=== PATIENT | male | born 1975 | race Caucasian/White ===

== ENCOUNTER 2019-05-06 18:31 | Emergency (ER) | payer OTHER, SELFPAY ==
[2019-05-06] MEDS ORDERED: predniSONE 20 MG TAB ONE (19:06)
[2019-05-06] MEDS ORDERED: VALACYCLOVIR 500 MG TAB ONE (19:06)
--- NOTE | 2019-05-07 00:12 | EDPHYS ---
Physician Documentation [facility] Name: Donte Esquivel Age: 43 yrs Sex: Male : 1975 Arrival Date: 05/06/2019 Time: 18:37 Bed 2 Private MD: ED Physician Cassius Duron HPI: 05/06 21:16 This 43 yrs old presents to ER via EMS with complaints of Numbness Of Face. tw4 21:16 The patient's problem is reported as paresthesias, in left side of face, weakness, in tw4 the left side of face. Onset: The symptoms/episode began/occurred this morning, today. Duration: The episode is continuous. Context: the episode(s) was witnessed, by no one. The symptoms are alleviated by nothing. The symptoms are aggravated by nothing. Associated signs and symptoms: The patient has no apparent associated signs or symptoms. The patient has not experienced similar symptoms in the past. Historical: - Allergies: 18:43 No Known Allergies; jl7 - Home Meds: 18:43 metoprolol tartrate Oral [Active]; losartan oral oral [Active]; jl7 - PMHx: 18:43 Hypertension; jl7 - PSHx: 18:43 Appendectomy; Right hand; Left Ankle; jl7 - Immunization history:: Adult Immunizations unknown. - Coronavirus screen:: The patient has NOT traveled to [place] in the past 14 days. Proceed with normal triage process as indicated. - Social history:: Smoking status: Patient reports the use of cigarette tobacco products, smokes 1.5 packs per day. - Ebola Screening: : No symptoms or risks identified at this time. ROS: 21:16 Constitutional: Negative for fever, chills, and weight loss, Eyes: Negative for injury, tw4 pain, redness, and discharge, Cardiovascular: Negative for chest pain, palpitations, and edema, Respiratory: Negative for shortness of breath, cough, wheezing, and pleuritic chest pain, Abdomen/GI: Negative for abdominal pain, nausea, vomiting, diarrhea, and constipation, Back: Negative for injury and pain, MS/Extremity: Negative for injury and deformity, Skin: Negative for injury, rash, and discoloration. 21:16 Neuro: Positive for numbness, weakness, Negative for altered mental status, dizziness, gait disturbance, headache, hearing loss, loss of consciousness, seizure activity, speech changes, syncope, near syncope. Exam: 21:16 Constitutional: This is a well developed, well nourished patient who is awake, alert, tw4 and in no acute distress. Head/Face: Normocephalic, atraumatic. Chest/axilla: Normal chest wall appearance and motion. Nontender with no deformity. No lesions are appreciated. Cardiovascular: Regular rate and rhythm with a normal S1 and S2. No gallops, murmurs, or rubs. Normal PMI, no JVD. No pulse deficits. Respiratory: Lungs have equal breath sounds bilaterally, clear to auscultation and percussion. No rales, rhonchi or wheezes noted. No increased work of breathing, no retractions or nasal flaring. Abdomen/GI: Soft, non-tender, with normal bowel sounds. No distension or tympany. No guarding or rebound. No evidence of tenderness throughout. Skin: Warm, dry with normal turgor. Normal color with no rashes, no lesions, and no evidence of cellulitis. MS/ Extremity: Pulses equal, no cyanosis. Neurovascular intact. Full, normal range of motion. 21:16 Neuro: Orientation: is normal, to person, place \T\ time. Mentation: is normal, Memory: is normal, Cranial nerves: facial droop noted on left, with forehead spared. Ptosis of left upper eyelid. Vital Signs: 18:43 BP 174 / 112; Pulse 65; Resp 16 S; Temp 98.8(O); Pulse Ox 99% on R/A; Weight 95.25 kg jl7 (R); Height 5 ft. 11 in. (180.34 cm) (R); Pain 0/10; 18:43 Body Mass Index 29.29 (95.25 kg, 180.34 cm) jl7 NIH Stroke Scale Scores: 18:49 NIHSS Score: 2 jl7 MDM: 18:43 Patient medically screened. tw4 21:16 Differential diagnosis: CVA, TIA, paralysis. Data reviewed: vital signs, nurses notes, tw4 EMS record. Data interpreted: Pulse oximetry: Interpretation: normal. Counseling: I had a detailed discussion with the patient and/or guardian regarding: the historical points, exam findings, and any diagnostic results supporting the discharge/admit diagnosis. Special discussion: I discussed with the patient/guardian in detail that at this point there is no indication for admission to the hospital. It is understood, however, that if the symptoms persist or worsen the patient needs to return immediately for re-evaluation. Administered Medications: No medications were administered Disposition: 21:19 Chart complete. tw4 Disposition: 05/06/19 18:55 Discharged to Home. Impression: Ivey's palsy. - Condition is Stable. - Discharge Instructions: Ivey Palsy, Adult. - Prescriptions for Valtrex 1 g Oral Tablet - take 1 tablet by ORAL route every 8 hours for 7 days; 21 tablet. Medrol (Macho) 4 mg Oral Tablets, Dose Pack - take 1 tablet by ORAL route as directed - follow package instructions; 1 packet. - Medication Reconciliation Form, Thank You Letter, Antibiotic Education, Prescription Opioid Use form. - Follow up: Private Physician; When: Upon discharge from the Emergency Department; Reason: If symptoms return, Recheck today's complaints, Continuance of care, Re-evaluation by your physician. - Problem is new. - Symptoms have improved. NIH Stroke Scale - NIH Stroke Score Date: 05/06/2019 Time: 18:49 Total Score = 2 1a. Level of Consciousness (LOC) - 0(Alert) 1b. Level of Consciousness (LOC) (Year \T\ Age) - 0(Both) 1c. LOC Commands (Open \T\ Closes Eyes/Sorting Machine Operator) - 0(Both) 2. Best Gaze (Lateral Gaze Paresis) - 0(Normal) 3. Visual Field Loss - 0(No visual loss) 4. Facial Palsy - 2(Partial paralysis) 5a. Left Arm: Motor (10-second hold) - 0(No drift) 5b. Right Arm: Motor (10-second hold) - 0(No drift) 6a. Left Leg: Motor (5-second hold - always test supine) - 0(No drift) 6b. Right Leg: Motor (5-second hold - always test supine) - 0(No drift) 7. Limb Ataxia (finger/nose \T\ heel/brito - test with eyes open) - 0(Absent) 8. Sensory Loss (pinprick arms/legs/face) - 0(Normal) 9. Best Language: Aphasia (description/naming/reading) - 0(No aphasia) 10. Dysarthria (speech clarity - read or repeat words) - 0(Normal) 11. Extinction and Inattention (visual/tactile/auditory/spatial/personal) - 0(No abnormality) Initials: jl7 Signatures: Vera Justice RN RN Pro Bonilla RN RN jl7 Cassius Duron MD MD tw4 Corrections: (The following items were deleted from the chart) 19:14 18:55 05/06/2019 18:55 Discharged to Home. Impression: Ivey's palsy. Condition hb is Stable. Forms are Medication Reconciliation Form, Thank You Letter, Antibiotic Education, Prescription Opioid Use. Follow up: Private Physician; When: Upon discharge from the Emergency Department; Reason: If symptoms return, Recheck today's complaints, Continuance of care, Re-evaluation by your physician. Problem is new. Symptoms have improved. tw4
--- NOTE | 2019-05-07 00:13 | ER ---
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 Pt states "My taste buds were off first thing this morning. Now I can't close my eye or drink out of a straw.". Transition of care: patient was not received from another setting of care. Onset of symptoms was May 06, 2019 at 05:00. Risk Assessment: Do you want to hurt yourself or someone else? Patient reports no desire to harm self or others. Initial Sepsis Screen: Does the patient meet any 2 criteria? No. Patient's initial sepsis screen is negative. Does the patient have a suspected source of infection? No. Patient's initial sepsis screen is negative. Care prior to arrival: None. 18:38 Method Of Arrival: EMS: [facility] 18:38 Acuity: MELISA 3 jl7 Triage Assessment: 18:43 General: Appears in no apparent distress. uncomfortable, Behavior is calm, cooperative, jl7 appropriate for age. Pain: Denies pain. EENT: No signs and/or symptoms were reported regarding the EENT system. Neuro: Level of Consciousness is awake, alert, obeys commands, Oriented to person, place, time, situation, Moves all extremities. Full function Gait is steady, Speech is normal. Cardiovascular: Patient's skin is warm and dry. Respiratory: Airway is patent Respiratory effort is even, unlabored, Respiratory pattern is regular, symmetrical, Breath sounds are clear bilaterally. GI: No signs and/or symptoms were reported involving the gastrointestinal system. : No signs and/or symptoms were reported regarding the genitourinary system. Derm: Skin is pink, warm \\T\\ dry. Musculoskeletal: No signs and/or symptoms reported regarding the musculoskeletal system. Historical: - Allergies: 18:43 No Known Allergies; jl7 - Home Meds: 18:43 metoprolol tartrate Oral [Active]; losartan oral oral [Active]; jl7 - PMHx: 18:43 Hypertension; jl7 - PSHx: 18:43 Appendectomy; Right hand; Left Ankle; jl7 - Immunization history:: Adult Immunizations unknown. - Coronavirus screen:: The patient has NOT traveled to [place] in the past 14 days. Proceed with normal triage process as indicated. - Social history:: Smoking status: Patient reports the use of cigarette tobacco products, smokes 1.5 packs per day. - Ebola Screening: : No symptoms or risks identified at this time. Screenin:49 Abuse screen: Denies threats or abuse. Denies injuries from another. Nutritional jl7 screening: No deficits noted. Tuberculosis screening: No symptoms or risk factors identified. VAN Screening: Arm Drift: Patient shows no arm weakness. Patient is VAN negative. Fall Risk None identified. Assessment: 18:45 Reassessment: Dr. Duron at bedside. jl7 18:49 General: See triage assessment. jl7 Vital Signs: 18:43 BP 174 / 112; Pulse 65; Resp 16 S; Temp 98.8(O); Pulse Ox 99% on R/A; Weight 95.25 kg jl7 (R); Height 5 ft. 11 in. (180.34 cm) (R); Pain 0/10; 18:43 Body Mass Index 29.29 (95.25 kg, 180.34 cm) jl7 NIH Stroke Scale Scores: 18:49 NIHSS Score: 2 jl7 ED Course: 18:37 Patient arrived in ED. jl7 18:40 Triage completed. jl7 18:43 Cassius Duron MD is Attending Physician. tw4 18:43 Arm band placed on right wrist. jl7 18:49 Patient has correct armband on for positive identification. Bed in low position. Call [facility] light in reach. Side rails up X 1. ekg monitor tech on. Pulse ox on. NIBP on. 18:56 Pro Bonilla RN is Primary Nurse. jl7 19:00 No provider procedures requiring assistance completed. Patient did not have IV access jl during this emergency room visit. Administered Medications: No medications were administered Outcome: 18:55 Discharge ordered by . tw4 19:10 Discharged to home ambulatory. jl7 19:10 Condition: stable 19:10 Discharge instructions given to patient, Instructed on discharge instructions, follow up and referral plans. medication usage, Demonstrated understanding of instructions, follow-up care, medications, Prescriptions given X 2. 19:14 Patient left the ED. NIH Stroke Scale - NIH Stroke Score Date: 05/06/2019 Time: 18:49 Total Score = 2 1a. Level of Consciousness (LOC) - 0(Alert) 1b. Level of Consciousness (LOC) (Year \\T\\ Age) - 0(Both) 1c. LOC Commands (Open \\T\\ Closes Eyes/Nonprofit Financial Controller) - 0(Both) 2. Best Gaze (Lateral Gaze Paresis) - 0(Normal) 3. Visual Field Loss - 0(No visual loss) 4. Facial Palsy - 2(Partial paralysis) 5a. Left Arm: Motor (10-second hold) - 0(No drift) 5b. Right Arm: Motor (10-second hold) - 0(No drift) 6a. Left Leg: Motor (5-second hold - always test supine) - 0(No drift) 6b. Right Leg: Motor (5-second hold - always test supine) - 0(No drift) 7. Limb Ataxia (finger/nose \\T\\ heel/brito - test with eyes open) - 0(Absent) 8. Sensory Loss (pinprick arms/legs/face) - 0(Normal) 9. Best Language: Aphasia (description/naming/reading) - 0(No aphasia) 10. Dysarthria (speech clarity - read or repeat words) - 0(Normal) 11. Extinction and Inattention (visual/tactile/auditory/spatial/personal) - 0(No abnormality) Initials: jl7 Signatures: Vera Justice RN RN Pro Bonilla RN RN jl7 Cassius Duron MD MD tw4
[2019-05-07 02:38] VITALS: BP 174/112; TEMP 98.8; O2SAT 99
== END 2019-05-06 19:14 | disposition home or self-care (01) ==
LOC: ER 18:31
DX: G51.0 Bell's palsy (principal); I10 Essential (primary) hypertension; F17.210 Nicotine dependence, cigarettes, uncomplicated
CPT/HCPCS: 99284; J7512